=== PATIENT | male | born 1960 | race Caucasian/White ===

== ENCOUNTER 2018-07-24 21:20 | Emergency (ER) | payer OTHER ==
[~2018-07-24] VITALS: Ht 165.1 cm; Wt 86.4 kg
[2018-07-24 21:33] VITALS: Ht 165.1 cm; Wt 86.4 kg
[2018-07-25] MEDS ORDERED: IBUPROFEN 200 MG TAB PO ONE (00:30)
[2018-07-25] MEDS ORDERED: IBUP-1542 PO (02:16)
--- NOTE | 2018-07-25 02:22 | ERD ---
ER Documentation Chief Complaint Chief Complaint fell while dancing about 1 hour ago, c/o left leg pain HPI This is a 57-year-old male presents to the ED with complaints of left posterior knee pain status post mechanical trip and fall after dancing [employer] music 1 hour prior to his arrival. Patient states his knee twisted in a weird way and he subsequently fell. There was no head injury or loss of consciousness. Patient is unable to bear weight since then. He reports left knee swelling. No numbness, tingling, focal weakness. No lacerations or abrasions. No other injuries reported. ROS All systems reviewed and are negative except as per history of present illness. Medications Home Meds Active Scripts Ibuprofen* (Motrin*) 600 Mg Tab, 600 MG PO Q6H PRN for PAIN AND OR ELEVATED TEMP, #30 TAB Prov:HIPOLITO VOGT PA-C 07/25/18 Allergies Allergies: Coded Allergies: No Known Drug Allergies (Verified Allergy, Unknown, 07/24/18) PMhx/Soc Medical and Surgical Hx: pt denies Medical Hx History of Surgery: Yes (hernia, right shoulder) Hx Alcohol Use: Yes (occ) Hx Substance Use: No Hx Tobacco Use: No Smoking Status: Never smoker Physical Exam Vitals Vital Signs Date Temp Pulse Resp B/P (MAP) Pulse Ox O2 O2 Flow FiO2 Time Delivery Rate 07/24/18 98.6 85 18 139/74 98 21:33 (95) Physical Exam Const: No acute distress Head: Atraumatic Eyes: Normal Conjunctiva ENT: Normal External Ears, Nose and Mouth. Neck: Full range of motion. No meningismus. Skin: No petechiae or rashes Back: No midline or flank tenderness Lower Extremity -left Skin: No laceration Compartments: Soft Motor: + Pain with knee flexion and extension. + Supra patellar swelling, mild warmth. Full active range of motion hip/ankle/foot Sensation: Intact to light touch FDWS/MF/LF/P surfaces. Bones: + Mild tenderness to palpation of the posterior left knee. Nontender Proximal tibia/ malleoli/foot Joints: No effusion or laxity Pulses/Perfusion: 2+ DP, Capillary refill < 2 seconds Neur: Awake and alert Psych: Normal Mood and Affect Results 24 hrs Current Medications Medications Dose Sig/Ed[place] Start Time Status Last (Trade) Ordered Route PRN Stop Time Admin Dose Reason Admin Ibuprofen 400 mg ONCE ONCE 07/25/18 DC 07/25/18 (Motrin) PO 00:30 07/25/18 00:28 00:31 Procedures/[facility]M LABS & DIAGNOSTIC IMAGING: PROCEDURE: Left knee x-ray CLINICAL INDICATION: Trauma with pain. TECHNIQUE: AP, lateral and oblique views of the left knee were obtained. 3 images COMPARISON: None FINDINGS: Fractures: None. Lytic or blastic lesions: None Joint spaces: Medial compartment: Mildly narrowed, mild marginal osteophytosis Lateral compartment: Mildly narrowed, mild marginal osteophytosis Patellofemoral compartment: Mildly to moderately narrowed, marginal osteophytosis Suprapatellar bursa: Large volume of fluid in the suprapatellar bursa Extra articular soft tissues: Unremarkable. Arterial calcifications: None. IMPRESSION: 1. Tricompartment osteoarthritis. 2. Large joint effusion or hemarthrosis. Magnetic resonance imaging would be useful to evaluate internal derangement. PROCEDURES: Knee immobilizer splint Assessment: Neurovascularly intact post splint placement with good fit. ED COURSE: The patient was given ibuprofen The medication was well tolerated and the patient had market improvement in symptoms. The patient remained stable throughout ED course. MEDICAL DECISION MAKING: This is a pleasant 57-year-old male with left knee pain and swelling status post slip and fall while dancing earlier today. Physical exam has evidence of effusion otherwise unremarkable. X-ray as above shows suprapatella bursitis and effusion however cannot rule out a ligamentous injury. He is afebrile here and vital signs are stable. No evidence of septic arthritis. Clinical picture not consistent with neurovascular injury, compartment syndrome, open fracture, or foreign body. Patient will be treated with Zain wrap, knee immobilizer, crutches and told to follow-up with his regular doctor for further management. I recommended repeat imaging if symptoms not improved in 1 week. Strict return precautions discussed PRESCRIPTIONS: Ibuprofen SPECIALIST FOLLOW UP RECOMMENDED: None Patient has been advised to follow up with primary care in 1-2 days. Departure Diagnosis: Primary Impression: Injury of left leg Encounter type: initial encounter Qualified Codes: S89.92XA - Unspecified injury of left lower leg, initial encounter Additional Impression: Bursitis Bursitis location: knee Knee bursitis location: suprapatellar bursitis Laterality: left Qualified Codes: M70.52 - Other bursitis of knee, left knee Condition: Stable Patient Instructions: Bursitis Additional Instructions: Please remain nonweightbearing for the next 1 week. He needs to be seen by regular doctor in 2 days for further evaluation of her knee pain. Recommend rest, icing your knee for the next 48 hours, and remaining nonweightbearing. Take the ibuprofen as needed for pain. Return for any new or worsening symptoms. HIPOLITO VOGT PA-C Jul 25, 2018 02:22
[2018-07-25 02:43] VITALS: BP 137/70; PULSE 66; RESP 19
== END 2018-07-25 02:57 | disposition home or self-care (01) ==
LOC: FTE 21:20
DX: S89.92XA Unspecified injury of left lower leg, initial encounter (principal); M70.52 Other bursitis of knee, left knee; W01.0XXA Fall on same level from slipping, tripping and stumbling without subsequent striking against object, initial encounter; Y92.9 Unspecified place or not applicable; Y93.41 Activity, dancing
CPT/HCPCS: 29505; 73562; Z7502; Z7610